=== PATIENT | male | born 1955 | race American Indian/Alaskan Native ===

== ENCOUNTER 2018-02-13 12:55 | Emergency (ER) | payer BC ==
[2018-02-13 13:05] VITALS: BMI 22.1
[2018-02-13 13:07] VITALS: RESP 16; TEMP 97.4; O2SAT 98
--- NOTE | 2018-02-13 13:20 | C.PDOC ---
History Of Present Illness 62 year old male with PMHx of chronic back pain presents to the ED c/o acute exacerbation of chronic lower back pain that started yesterday. Patient has intermittent episodes, similar 2 years ago. Patient states symptoms this time are more prolonged that usual, pain started after working out. Patient states her pain is localized, worsens when standing up. Patient denies improvement with prior use of topical Bengay. Patient denies injury, fall, addles anesthesia , bowel incontinence, weakness, numbness, dysuria, hematuria. Time Seen by Provider: 02/13/18 13:10 Chief Complaint (Nursing): Back Pain History Per: Patient History/Exam Limitations: no limitations Onset/Duration Of Symptoms: Days (1) Current Symptoms Are (Timing): Still Present Quality Of Discomfort: "Pain" Previous Symptoms: Back Pain Associated Symptoms: None Exacerbating Factor(s): Standing Recent travel outside of the [place]: No Additional History Per: Patient Past Medical History Reviewed: Historical Data, Nursing Documentation, Vital Signs Vital Signs: Last Vital Signs Temp 97.4 F L 02/13/18 13:05 Pulse 58 L 02/13/18 13:05 Resp 16 02/13/18 13:05 BP 161/89 H 02/13/18 13:05 Pulse Ox 98 02/13/18 13:29 - Medical History PMH: No Chronic Diseases Surgical History: No Surg Hx Family History: States: Unknown Family Hx - Social History Hx Alcohol Use: No Hx Substance Use: No - Immunization History Hx Tetanus Toxoid Vaccination: No Hx Influenza Vaccination: No Hx Pneumococcal Vaccination: No Review Of Systems Constitutional: Negative for: Fever, Chills Cardiovascular: Negative for: Chest Pain, Palpitations Respiratory: Negative for: Shortness of Breath Gastrointestinal: Negative for: Nausea, Vomiting, Abdominal Pain Musculoskeletal: Positive for: Back Pain Skin: Negative for: Rash Neurological: Negative for: Weakness, Numbness Physical Exam - Physical Exam Appears: Non-toxic, In Acute Distress (due to pain) Skin: Normal Color, Warm, Dry Head: Atraumatic, Normacephalic Eye(s): bilateral: Normal Inspection Neck: Normal ROM, Supple Chest: Symmetrical Cardiovascular: Rhythm Regular Respiratory: Normal Breath Sounds, No Rales, No Rhonchi, No Wheezing Gastrointestinal/Abdominal: Soft, No Tenderness, No Guarding, No Rebound Back: No Vertebral Tenderness, Muscle Spasm (diffuse lower back), Other ( limited full extension due to pain) Extremity: Normal ROM, No Tenderness, No Swelling Neurological/Psych: Oriented x3, Normal Speech, Normal Motor, Normal Sensation, Other (no focal deficits) Gait: Steady ED Course And Treatment O2 Sat by Pulse Oximetry: 98 (ON RA) Pulse Ox Interpretation: Normal Disposition Counseled Patient/Family Regarding: Diagnosis, Need For Followup, Rx Given - Disposition Referrals: [facility] [Outside] [facility] [Outside] Disposition: HOME/ ROUTINE Disposition Time: 13:21 Condition: IMPROVED Prescriptions: Acetaminophen [Tylenol Extra Strength] 2 tab PO Q6 #30 tablet Cyclobenzaprine [Flexeril] 10 mg PO TID #15 tab Ibuprofen [Motrin] 600 mg PO Q6 #30 tab Lidocaine 5% [Lidoderm] 2 patch TOP ONCE PRN #20 patch MDD 3 PATCHES PRN Reason: Pain, Moderate (4-7) Instructions: Low Back Pain (DC) Forms: [employer] (Arabic) - Clinical Impression Clinical Impression: Acute exacerbation of chronic low back pain - Scribe Statement The provider has reviewed the documentation as recorded by the Scribe Horace Arora All medical record entries made by the Scribe were at my direction and personally dictated by me. I have reviewed the chart and agree that the record accurately reflects my personal performance of the history, physical exam, medical decision making, and the department course for this patient. I have also personally directed, reviewed, and agree with the discharge instructions and disposition.
[2018-02-13 13:44] VITALS: BP 135/85; PULSE 81
== END 2018-02-13 13:43 | disposition home or self-care (01) ==
LOC: C.ER 12:55
DX: G89.29 Other chronic pain (principal); M54.5 Low back pain